=== PATIENT | female | born 1995 | race Caucasian/White ===

== ENCOUNTER 2016-08-30 20:16 | Emergency (ER) | payer OTHER ==
[2016-08-30] MEDS ORDERED: predniSONE 20 MG TAB PO ONE (21:51)
[2016-08-30] MEDS ORDERED: KETOROLAC TROMETHAMINE INJ 30 MG/ML VIAL IM ONE (21:51)
--- NOTE | 2016-08-30 21:54 | ED.PDOC ---
History of Present Illness - General Chief Complaint: Lower Extremity Injury Stated Complaint: left knee pain Time Seen by Provider: 08/30/16 21:51 Source: patient Exam Limitations: no limitations - History of Present Illness Initial Comments: The patient is a 21-year-old female presenting to the emergency room secondary to left knee pain. The pain isn't present for approximately 24-48 hours. She has not had any fevers. She has no history of gout. She is not remember injuring it. He really is no visible swelling. The knee is uncomfortable to palpation over the entirety of the knee itself. There is no pain in her calf or in her thigh. The pain is only made a little bit worse with testing of the ligaments of the knee. There is no pain over the prepatellar bursa. There is no significant increased heat. Weightbearing does increase the pain a little bit. No previous problems with the knee. She has not recently had a strep infection. She has not recently gotten dehydrated. She has had no recent protein loads. No recent medication changes. Occurred: yesterday Pain - Lower Extremity: moderate: Left Knee Method of Injury: unknown Improving Factors: immobilization Worsening Factors: movement Allergies/Adverse Reactions: Allergies NO KNOWN ALLERGY Allergy (Verified 08/30/16 21:45) Home Medications: Ambulatory Orders Albuterol Inhaler 1 each PRN 08/30/16 Montelukast Sodium [Singulair] 10 mg PO DAILY 08/30/16 predniSONE [Prednisone] 20 mg PO DAILY #5 tab 08/30/16 Review of Systems - Review of Systems Constitutional: States: no symptoms reported EENTM: States: no symptoms reported Respiratory: States: no symptoms reported Cardiology: States: no symptoms reported Gastrointestinal/Abdominal: States: no symptoms reported Genitourinary: States: no symptoms reported Musculoskeletal: States: see HPI Skin: States: no symptoms reported Neurological: States: no symptoms reported Endocrine: States: no symptoms reported All other Systems: No Change from Baseline Past Medical History (General) - Patient Medical History Hx Seizures: No Hx Stroke: No Hx Dementia: No Hx Asthma: Yes Hx of COPD: No Hx Cardiac Disorders: No Hx Congestive Heart Failure: No Hx Pacemaker: No Hx Hypertension: No Hx Thyroid Disease: No Hx Diabetes: No Hx Gastroesophageal Reflux: No Hx Renal Disease: No Hx Cancer: No Hx of HIV: No Hx Hepatitis C: No Hx MRSA: No Surgical History: no surgical history - Vaccination History Hx Tetanus, Diphtheria Vaccination: Yes Hx Influenza Vaccination: No Hx Pneumococcal Vaccination: No Immunizations Up to Date: Yes - Social History Hx Tobacco Use: No Hx Chewing Tobacco Use: No Hx Alcohol Use: Yes Hx Substance Use: No Hx Substance Use Treatment: No Hx Depression: No Feels Threatened In Home Enviroment: No Feels Threatened In a Relationship: No Hx Physical Abuse: No Hx Emotional Abuse: No Hx Suspected Abuse: No - Female History Patient is a Female of Child Bearing Age (10 -59 yrs old): Yes Hx Last Menstrual Period: 05/10/14 Patient : No Expected Date of Delivery:: 01/31/15 Family Medical History - Family History Mother Name: jess Age (years): 53 Living Status: Still Living Hx Family Asthma: Yes Father Name: KRISTINA Age (years): 54 Living Status: Still Living Hx Family Hypertension: Yes Hx Family Diabetes: Yes Hx Family Cancer: Yes - Colon cancer Physical Exam - Physical Exam General Appearance: Alert, Comfortable, No apparent distress Eyes, Ears, Nose, Throat: PERRL/EOMI Neck: non-tender, full range of motion, supple Cardiovascular/Respiratory: regular rate, rhythm - y the time of my examination the patient's heart rates back down in the 90s, normal peripheral pulses, normal breath sounds, no respiratory distress Thigh/Hip: normal inspection, non-tender, no evidence of injury, normal ROM Leg: normal inspection, non-tender, no evidence of injury, normal ROM Knee: soft tissue tenderness, other - see history of present illness Ankle: normal inspection, non-tender, no evidence of injury, normal ROM Foot: normal inspection, non-tender, no evidence of injury, normal ROM Neuro/Tendon: normal sensation, normal motor functions, normal tendon functions Mental Status: alert, oriented x 3 Skin: normal color Comments: Vital Signs - 24 hr 08/30/16 21:39 Temperature 98.6 F Pulse Rate [ 114 H monitor] Respiratory 16 Rate Blood Pressure 122/82 [Left Arm] O2 Sat by Pulse 97 Oximetry Progress - Progress Progress: 08/30/16 21:55 the patient is a 21-year-old female presenting to the emergency room secondary to left knee pain is most consistent with a noninfectious synovitis. Source is uncertain but trauma is still the most likely culprit. The patient is going to be placed on prednisone 20 mg daily for the next 5 days. She is to increase her fluid intake. She did receive 1 dose of Toradol here today. She needs to do range of motion exercises for the knee. If the pain is not significantly improving over the next week, or if symptoms acutely worsen in any way then additional workup would be warranted. That Would possibly include x-ray and blood work including an ASO titer and blood work for inflammatory markers and possibly aspiration for examination for uric acid crystals. At this time, that does not seem warranted. ER warnings were given. She needs to follow up with her primary care doctor later in the week. Departure - Departure Clinical Impression: Synovitis Disposition: Discharge to Home or Self Care Condition: Fair Departure Forms: ED Discharge - Pt. Copy, Patient Portal Self Enrollment Instructions: DI for Bursitis Diet: regular diet - increase fluids. Reduce protein intake for the next week. Activity: increase activity as tolerated Referrals: Edwin Torres MD [Primary Care Provider] - 1-2 Weeks Prescriptions: predniSONE [Prednisone] 20 mg PO DAILY #5 tab Home Medications: Ambulatory Orders Albuterol Inhaler 1 each PRN 08/30/16 Montelukast Sodium [Singulair] 10 mg PO DAILY 08/30/16 predniSONE [Prednisone] 20 mg PO DAILY #5 tab 08/30/16 Additional Instructions: the patient is a 21-year-old female presenting to the emergency room secondary to left knee pain is most consistent with a noninfectious synovitis. Source is uncertain but trauma is still the most likely culprit. The patient is going to be placed on prednisone 20 mg daily for the next 5 days. She is to increase her fluid intake. She did receive 1 dose of Toradol here today. She needs to do range of motion exercises for the knee. If the pain is not significantly improving over the next week, or if symptoms acutely worsen in any way then additional workup would be warranted. That Would possibly include x-ray and blood work including an ASO titer and blood work for inflammatory markers and possibly aspiration for examination for uric acid crystals. At this time, that does not seem warranted. ER warnings were given. She needs to follow up with her primary care doctor later in the week.
[2016-08-30 22:27] VITALS: BP 128/71; TEMP 98.4; O2SAT 98
== END 2016-08-30 22:27 | disposition home or self-care (01) ==
LOC: ER 20:16
DX: M65.862 Other synovitis and tenosynovitis, left lower leg (principal); J45.909 Unspecified asthma, uncomplicated
CPT/HCPCS: J1885; J7512

== ENCOUNTER → 2016-09-01 | Outpatient (CLI) | payer MEDICAID, OTHER ==
--- NOTE | 2016-09-01 15:51 | RAD ---
EXAM DESCRIPTION: Knee,Left Complete CLINICAL HISTORY: PAIN COMPARISON: None. IMPRESSION: 4 views of the left in the show no evidence of acute fracture, focal bone destruction, or joint dislocation. Soft tissues are unremarkable. No significant joint effusion. 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 Electronically signed by: Jose Ho MD 09/01/2016 3:19 PM CDT
== END ==
LOC: YCFC.O 09:13
PROVIDERS: ATTEND Nurse Practitioner Family
DX: M25.562 Pain in left knee (principal)